=== PATIENT | female | born 1950 | race Caucasian/White ===

== ENCOUNTER 2016-11-03 06:51 | Day surgery (SDC) | payer MEDICARE ==
[2016-11-02 10:05] VITALS: BMI 28.7
--- NOTE | 2016-11-03 09:03 | MMO ---
RIGHT BREAST NEEDLE LOCALIZATION: HISTORY: Previous biopsy. Now the patient is scheduled for complete excisional biopsy. FINDINGS: Biopsy clip and associated calcifications are seen in the upper outer right breast. A CC approach w as used for the needle localization. After informed consent was obtained, the patient was prepped i n the normal sterile fashion. Local anesthesia was obtained with 1% Xylocaine. 7.5 cm [place] needle was used for the localization. The clip and calcifications were localized without difficulty. The patient tolerated the procedure well. There are no immediate complications. IMPRESSION: Needle localization of biopsy clip and associated calcifications upper outer right breast. No immed iate complications of the procedure. POS: [facility]
--- NOTE | 2016-11-03 09:42 | NM ---
LYMPHOSCINTIGRAPHY OF RIGHT BREAST: HISTORY: Breast cancer staging. FINDINGS: After informed consent was obtained, the patient was prepped in normal sterile fashion. Four separa te injections around the nipple were performed with a total dose of 440 mCi of 99m Technetium filter ed sulfur colloid. The patient tolerated the procedure well. Almost immediately, some axillary lym ph nodes were visualized. The patient was transferred to surgery. IMPRESSION: Successful lymphoscintigraphy of the right breast. POS: [facility]
[2016-11-03 09:55] LABS: Hematocrit 44.3 % (36.0-47.0); Mean Platelet Volume 7.7 fL (7.4-10.4); Red Blood Cell (RBC) Count 5.13 mill/uL (4.20-5.40); White Blood Cell (WBC) Count 8.1 thou/uL (4.8-10.8)
[2016-11-03 10:12] LABS: Anion Gap 16 mmol/L (10-20); BUN (Urea Nitrogen) 15 mg/dL (9.8-20.1); Calc. Creatinine Clearance 67 mL/min (70-130); Calcium 9.8 mg/dL (7.8-10.44); Carbon Dioxide 24 mmol/L (23-31); Chloride 104 mmol/L (98-107); Estimated GFR-MDRD 75
[2016-11-03] MEDS ORDERED: PHENYLEPHRINE-NS 100 MCG/ML 10 ML SYRINGE ONE (10:35)
[2016-11-03] MEDS ORDERED: Propofol 200 MG/20 ML VIAL ONE (10:35)
[2016-11-03] MEDS ORDERED: ePHEDrine/0.9% NaCl/PF SYRINGE 50 mg/10 ml ONE (10:35)
[2016-11-03] MEDS ORDERED: Glycopyrrolate 0.2 MG/ML 5 ML SYRINGE ONE (10:35)
[2016-11-03] MEDS ORDERED: Ondansetron HCl/PF 4 MG/2 ML Vial ONE (10:35)
--- NOTE | 2016-11-03 14:01 | MMO ---
SPECIMEN RADIOGRAPH: Single specimen radiograph confirms the presence of the biopsy clip and some of the calcifications w ithin the breast specimen. IMPRESSION: Specimen radiograph showing clip and calcifications within the specimen. POS: [facility]
--- NOTE | 2016-11-03 15:10 | PDOC.OP ---
Operative Note - Operative Note Operative Note: PROCEDURE: Right breast needle localized lumpectomy and sentinel lymph node biopsy DATE OF PROCEDURE: 11/03/2016 SURGEON: Suzanne Luciano M.D. PREOPERATIVE DIAGNOSES: Right breast cancer POSTOPERATIVE DIAGNOSIS: Right breast cancer HISTORY: Patient is diagnosed with right breast cancer. She initially had an enlarged axillary lymph node which was biopsy-proven to have metastatic cancer. A clip was placed in this lymph node as well as in the original mass. She underwent neoadjuvant chemotherapy with complete clinical response. She has decided to undergo breast conservation therapy. [place] lymph node biopsy was recommended for restaging. PROCEDURE IN DETAIL: The patient underwent lymphoscintigraphy and needle localization of the breast mass in radiology prior to being taken to the operating room. She was then taken to the operating room and placed in supine position and anesthesia was administered. Appropriate preoperative antibiotics were administered and lymphazurin was injected behind the areola and the breast was massaged for several minutes taking care not to displace or disturb the needle localization wire. She was then prepped and draped in the standard sterile fashion and local anesthesia infused the skin and subcutaneous tissues of the axilla. An incision was made over the lower edge of the hair-bearing skin of the axilla and dissection carried down to the area of highest activity. A slightly enlarged lymph node was encountered and resected but this did not have a high specimen counts and was not a sentinel lymph node. It was sent separately as axillary lymph node. A small lymph node in this area was identified which was morphologically normal and not blue. The lymphatics were clipped and the lymph node resected. A target count of 37 was obtained and the specimen was sent as sentinel lymph node #1. An additional area of increased activity was identified and another lymph node identified. This was not blue and had a target count of 105 and was sent as sentinel lymph node #2. A third area of increased count was identified and a third quite small lymph node was found and dissected free and had a specimen count of 63. No other focal area of increased activity was identified. The axillary wound was irrigated and examined for hemostasis which was excellent. No additional areas of increased activity were identified. Additional local anesthesia was infused circumferentially for postoperative pain management and the subcutaneous tissues were closed with 3-0 Monocryl suture and the skin closed with 4-0 subcuticular Monocryl suture. Attention was then turned to the needle localized lumpectomy. Local anesthesia was infused the skin and subcutaneous tissues at the needle localization site. An incision was made and flaps raised through the subcutaneous tissues. The breast tissue surrounding the needle was then excised maintaining a distance of about 2-3 cm from the localization needle in all directions. Especially generous margin was taken inferiorly and laterally in the area where the patient had a satellite lesion in close proximity to her invasive cancer originally. Dissection was carried out well past the end of the wire and the specimen removed and oriented for pathology with a long lateral, short superior , and looped superficial suture. This was sent for a specimen mammogram which revealed that the clip and calcifications were in the specimen. The wound was irrigated and hemostasis obtained with Bovie electrocautery. The margins of the biopsy cavity were marked with large clips to help guide postoperative radiation therapy. Additional local anesthesia was infused for postoperative pain management and the subcutaneous tissues were reapproximated with 3-0 Monocryl sutures. Additional local anesthesia was infused into the biopsy cavity and the skin was closed with 4-0 subcuticular Monocryl sutures. Dermabond was placed to both incisions. Estimated blood loss minimal. There were no complications. SPECIMENS: [place] lymph nodes #12 and 3 and non-sentinel lymph node from the right axilla, right breast lumpectomy with localization wire, marked with long lateral, short superior, and looped superficial suture.
== END 2016-11-03 15:00 | disposition home or self-care (01) ==
LOC: MAMMO 06:51 → SDC 15:00
PROVIDERS: ATTEND Surgery
PROC: 0HBT0ZZ Excision of Right Breast, Open Approach (ICD-10-PCS; principal; 2016-11-03)
PROC: 07B50ZX Excision of Right Axillary Lymphatic, Open Approach, Diagnostic (ICD-10-PCS; 2016-11-03)
PROC: C71L1ZZ Planar Nuclear Medicine Imaging of Upper Chest Lymphatics using Technetium 99m (Tc-99m) (ICD-10-PCS; 2016-11-03)
DX: C50.911 Malignant neoplasm of unspecified site of right female breast (principal); R56.9 Unspecified convulsions; F17.210 Nicotine dependence, cigarettes, uncomplicated; Z79.899 Other long term (current) drug therapy; Z17.0 Estrogen receptor positive status [ER+]; Z92.21 Personal history of antineoplastic chemotherapy
CPT/HCPCS: 19281; 19301; 38500; 38900; 76098; 78195; 80048; 85027; 88307; 88333; 88341; 88342; A9541; J2405; J2704

== ENCOUNTER 2016-11-06 08:49 | Day surgery (SDC) | payer MEDICARE ==
[~2016-11-06 08:49] MED LIST: Bupivacaine HCl 0.5%/Epinephrine 1:200,000/PF 30 ml Vial ONE; Fentanyl 100 MCG/2 ML VIAL ONE; Glycopyrrolate 0.2 MG/ML 5 ML SYRINGE ONE; HYDROcodone/Acetaminophen 5/325 mg Tablet ONE; Isosulfan Blue 50 MG/5 ML VIAL ONE
[2016-11-06] MEDS ORDERED: Sodium Chloride 0.9% 20 ML ONE (09:00)
[2016-11-06] MEDS ORDERED: TRASTUZUMAB IVPB SCH (09:15)
[2016-11-06] MEDS ORDERED: ADMIXTURE FEE IVPB SCH (09:15)
[2016-11-06] MEDS ORDERED: SODIUM CHLORIDE IVPB SCH (09:15)
[2016-11-06 09:17] VITALS: BP 145/68
== END 2016-11-06 11:10 | disposition home or self-care (01) ==
LOC: ONC/OP 08:49
PROVIDERS: ATTEND Internal Medicine Medical Oncology
DX: Z51.11 Encounter for antineoplastic chemotherapy (principal); C50.411 Malignant neoplasm of upper-outer quadrant of right female breast; M19.90 Unspecified osteoarthritis, unspecified site; I10 Essential (primary) hypertension; F32.9 Major depressive disorder, single episode, unspecified; F41.9 Anxiety disorder, unspecified; Z17.0 Estrogen receptor positive status [ER+]; Z90.710 Acquired absence of both cervix and uterus; Z90.49 Acquired absence of other specified parts of digestive tract; Z98.890 Other specified postprocedural states; F17.200 Nicotine dependence, unspecified, uncomplicated; Z80.42 Family history of malignant neoplasm of prostate
CPT/HCPCS: 96413; A4216; J0131; J0670; J1642; J3010; J7050; J9355; Q9968

== ENCOUNTER 2016-11-21 13:31 | Outpatient (CLI) | payer MEDICARE | END 2016-11-21 13:32 | disposition home or self-care (01) | LOC: ULT 13:31 | PROVIDERS: ATTEND Internal Medicine Medical Oncology | DX: Z51.11 Encounter for antineoplastic chemotherapy (principal); C50.411 Malignant neoplasm of upper-outer quadrant of right female breast | CPT/HCPCS: 93306 ==

== ENCOUNTER 2016-11-27 09:50 | Day surgery (SDC) | payer MEDICARE ==
[2016-11-27] MEDS ORDERED: Sodium Chloride 0.9% 20 ML ONE (10:12)
[2016-11-27] MEDS ORDERED: TRASTUZUMAB IVPB SCH (10:15)
[2016-11-27] MEDS ORDERED: ADMIXTURE FEE IVPB SCH (10:15)
[2016-11-27] MEDS ORDERED: SODIUM CHLORIDE IVPB SCH (10:15)
== END 2016-11-27 12:03 | disposition home or self-care (01) ==
LOC: ONC/OP 09:50
PROVIDERS: ATTEND Internal Medicine Medical Oncology
DX: Z51.11 Encounter for antineoplastic chemotherapy (principal); C50.411 Malignant neoplasm of upper-outer quadrant of right female breast; I10 Essential (primary) hypertension; M19.90 Unspecified osteoarthritis, unspecified site; F17.200 Nicotine dependence, unspecified, uncomplicated; Z79.899 Other long term (current) drug therapy; Z17.0 Estrogen receptor positive status [ER+]; Z90.710 Acquired absence of both cervix and uterus; Z90.49 Acquired absence of other specified parts of digestive tract; Z98.890 Other specified postprocedural states
CPT/HCPCS: 96413; A4216; J1642; J7050; J9355

== ENCOUNTER 2017-01-12 10:27 | Outpatient (CLI) | payer MEDICARE | END 2017-01-12 10:28 | disposition home or self-care (01) | LOC: BICMAMMO 10:27 | PROVIDERS: ATTEND Internal Medicine Medical Oncology | DX: Z13.820 Encounter for screening for osteoporosis (principal); M85.80 Other specified disorders of bone density and structure, unspecified site | CPT/HCPCS: 77080 ==

== ENCOUNTER 2017-02-12 11:49 | Outpatient (CLI) | payer MEDICARE | END 2017-02-12 11:50 | disposition home or self-care (01) | LOC: ULT 11:49 | PROVIDERS: ATTEND Internal Medicine Medical Oncology | DX: Z51.11 Encounter for antineoplastic chemotherapy (principal); C50.411 Malignant neoplasm of upper-outer quadrant of right female breast; I34.0 Nonrheumatic mitral (valve) insufficiency; I36.1 Nonrheumatic tricuspid (valve) insufficiency; Z79.899 Other long term (current) drug therapy | CPT/HCPCS: 93306 ==

== ENCOUNTER 2017-03-20 12:32 | Outpatient (CLI) | payer MEDICARE | END 2017-03-20 12:33 | disposition home or self-care (01) | LOC: ULT 12:32 | PROVIDERS: ATTEND Internal Medicine Medical Oncology | DX: Z51.11 Encounter for antineoplastic chemotherapy (principal); C50.411 Malignant neoplasm of upper-outer quadrant of right female breast; I08.1 Rheumatic disorders of both mitral and tricuspid valves; Z79.899 Other long term (current) drug therapy; N39.0 Urinary tract infection, site not specified | CPT/HCPCS: 87077; 87086; 87186; 93306 ==

== ENCOUNTER 2017-05-21 12:10 | Outpatient (CLI) | payer MEDICARE | END 2017-05-21 12:11 | disposition home or self-care (01) | LOC: ULT 12:10 | PROVIDERS: ATTEND Internal Medicine Medical Oncology | DX: Z51.11 Encounter for antineoplastic chemotherapy (principal); C50.919 Malignant neoplasm of unspecified site of unspecified female breast; I34.0 Nonrheumatic mitral (valve) insufficiency; Z79.899 Other long term (current) drug therapy | CPT/HCPCS: 93306 ==

== ENCOUNTER 2017-07-18 08:50 | Outpatient (CLI) | payer MEDICARE | END 2017-07-18 08:51 | disposition home or self-care (01) | LOC: BICMAMMO 08:50 | PROVIDERS: ATTEND Internal Medicine Medical Oncology | DX: C50.411 Malignant neoplasm of upper-outer quadrant of right female breast (principal) | CPT/HCPCS: 77066; G0279 ==

== ENCOUNTER 2018-01-11 07:53 | Outpatient (CLI) | payer MEDICARE ==
--- NOTE | 2018-01-11 09:52 | BD ---
DEXA BONE DENSITY STUDY: HISTORY: A 67-year-old female with a history of malignant neoplasm of upper outer quadrant of right breast, os teopenia, menopausal, screening. FINDINGS: Lumbar Spine: BMD (g/cm2) L1 0.805 T-Score: -1.7 L2 0.782 T-Score: -2.3 L3 0.847 T-Score: -2.2 L4 0.853 T-Score: -1.9 L1-L4 0.821 T-Score: -2.1 Evidence for osteopenia with increased risk for fracture. Prior exam 01/12/2017 total T-Score was -2.0. Left Femur: Femoral Neck: 0.547 T-Score: -2.7 Total Femur: 0.713 T-Score: -1.9 Evidence for osteoporosis with high risk for fracture. Femoral neck T-Score from prior exam, 01/12/2017, was -2.4. POS: [facility]
== END 2018-01-11 07:54 | disposition home or self-care (01) ==
LOC: BICMAMMO 07:53
PROVIDERS: ATTEND Internal Medicine Medical Oncology
DX: M85.88 Other specified disorders of bone density and structure, other site (principal); C50.411 Malignant neoplasm of upper-outer quadrant of right female breast; M81.0 Age-related osteoporosis without current pathological fracture
CPT/HCPCS: 77080

== ENCOUNTER 2018-01-11 09:23 | Outpatient (CLI) | payer MEDICARE ==
--- NOTE | 2018-01-11 13:55 | NM ---
BONE SCAN: Date: 01/11/18 HISTORY: Malignant neoplasm of breast. TECHNIQUE/FINDINGS: Examination performed using 33 mCi 99m technetium MDP administered intravenously. Whole body imaging was obtained, which shows a fairly normal distribution of the radiopharmaceutical. No evidence for me tastatic disease. Bilateral renal, as well as bladder activity, present. IMPRESSION: Unremarkable bone scan. POS: [facility]
== END 2018-01-11 09:24 | disposition home or self-care (01) ==
LOC: NM 09:23
PROVIDERS: ATTEND Internal Medicine Medical Oncology
DX: C50.411 Malignant neoplasm of upper-outer quadrant of right female breast (principal); M25.552 Pain in left hip
CPT/HCPCS: 78306; A9503

== ENCOUNTER 2018-07-22 08:52 | Outpatient (CLI) | payer MEDICARE ==
--- NOTE | 2018-07-22 09:32 | MMO ---
Bilateral MAMMO Bilat Diag DDI+ROGER. CLINICAL HISTORY: Patient is 68 years old and is seen for diagnostic exam. The patient has no family history of breast cancer. The patient has a history of malignant (generic) in the right breast in April,. The patient has a history of right Ultrasound Guided Core Biopsy in April, - malignant and right Lumpectomy in April, - malignant. VIEWS: The views performed were: bilateral craniocaudal with tomosynthesis; bilateral mediolateral oblique with tomosynthesis; bilateral mediolateral; and right exaggerated craniocaudal. FILMS COMPARED: The present examination has been compared to prior imaging studies performed at [facility] on 07/18/2017, and at [facility] on 08/25/2015, 03/13/2016 and 04/06/2016. MAMMOGRAM FINDINGS: There are scattered fibroglandular densities. Finding 1: There is an area of architectural distortion with associated post-surgical scar and biopsy clip seen in the right breast. Finding 2: There are stable benign appearing calcifications seen in the left breast. There are no suspicious masses, suspicious calcifications, or new areas of architectural distortion. IMPRESSION: THERE IS NO MAMMOGRAPHIC EVIDENCE OF MALIGNANCY. A ROUTINE FOLLOW-UP MAMMOGRAM IN 1 YEAR IS RECOMMENDED. THE RESULTS OF THIS EXAM WERE SENT TO THE PATIENT. ACR BI-RADS Category 2 - Benign finding MAMMOGRAPHY NOTE: 1. A negative mammogram report should not delay a biopsy if a dominant of clinically suspicious mass is present. 2. Approximately 10% to 15% of breast cancers are not detected by mammography. 3. Adenosis and dense breasts may obscure an underlying neoplasm.
== END 2018-07-22 08:53 | disposition home or self-care (01) ==
LOC: BICMAMMO 08:52
PROVIDERS: ATTEND Internal Medicine Medical Oncology
DX: Z08 Encounter for follow-up examination after completed treatment for malignant neoplasm (principal); Z85.3 Personal history of malignant neoplasm of breast
CPT/HCPCS: 77066; G0279

== ENCOUNTER 2018-10-20 20:12 | Observation (INO) | payer MEDICARE ==
--- NOTE | 2018-10-20 22:38 | PDOC.EVN ---
Event Note - Event Note Event Note: [id number] H&P dictated
[2018-10-20] MEDS ORDERED: Ondansetron PF 4 MG/2 ML Vial IVP PRN (22:59)
[2018-10-20] MEDS ORDERED: Ondansetron ODT 4 MG TAB SL PRN (22:59)
--- NOTE | 2018-10-21 00:24 | HP ---
CHIEF COMPLAINT: Right facial numbness. HISTORY OF PRESENT ILLNESS: Ms. Botello is a 68-year-old female, with past medical historyof hypertension, hyperlipidemia, breast cancer, seizures, among others, presents to the emergency room with a chief complaint of paresthesias/numbness of the right facial and right upper extremity. Symptoms started around 4 p.m. Denies weakness or slurring of speech. Initial workup in the emergency room including CT of the brain, no acute finding. The patient is being admitted to the hospital for further management. PAST MEDICAL HISTORY: 1. Hypertension. 2. Seizures. 3. Hyperlipidemia. 4. Breast cancer. PAST SURGICAL HISTORY: 1. Two lumps removed from the left breast. 2. Appendectomy. 3. Cholecystectomy. 4. Hysterectomy. 5. Depression. SOCIAL HISTORY: Patient smokes 1.5 packs per day, denies alcohol drinking or drug abuse. FAMILY HISTORY: Reviewed and noncontributory. ALLERGIES: NO KNOWN ALLERGIES. REVIEW OF SYSTEMS: Review of 14 systems negative except what is mentioned in History of Present Illness. PHYSICAL EXAMINATION: GENERAL: The patient is awake, alert, oriented, does not appear to be in acute distress. VITAL SIGNS: Blood pressure is 142/84, respiratory rate is 20, pulse is 100, temperature is 98.6. HEAD AND NECK: Normocephalic, atraumatic. Neck is supple. No JVD. CHEST: Fair bilateral air entry. HEART: S1, S2. Regular. ABDOMEN: Soft, nontender. Bowel sounds present. NEUROLOGIC: Awake, alert, oriented x3, no focal deficit. PSYCH: Normal mood. EXTREMITIES: No clubbing or cyanosis. LABORATORY DATA: CT of the brain, no acute findings. WBC 7.4, hemoglobin 11.8, platelets 42. ASSESSMENT: 1. Right facial numbness/paresthesia, transient ischemic attack/?cerebrovascular accident. 2. Hypertension. 3. Hyperlipidemia. 4. Thrombocytopenia, etiology? PLAN: 1. Admit. 2. Telemetry monitoring. 3. Frequent neuro checks. 4. Check lipid panel. 5. MRI of the brain. 6. 2D echo. 7. Carotid Doppler. 8. Reconcile home medications. 9. DVT prophylaxis, SCDs. 10. Expected length of stay at least 1 midnight if the patient is stable and further workup negative. Job ID: [id number]
[2018-10-21 01:15] VITALS: BMI 32.7
[2018-10-21 04:14] LABS: Cardiac Risk 2.9 (Less than 4.5)
[2018-10-21] MEDS ORDERED: Aspirin 325 MG TAB PO SCH (08:00)
--- NOTE | 2018-10-21 08:53 | HP ---
ADDENDUM: Regarding thrombocytopenia, her platelet count is 40,000. Reviewing her old labs, her platelet count has been normal. I will go ahead and stop the heparin and aspirin for now. We are going to repeat CBC and reassess, may need to get Hematology consultation for evaluation and further management. Job ID: [id number]
[2018-10-21] MEDS ORDERED: Heparin 5,000 UNITS/ML VIAL SC SCH (09:00)
[2018-10-21] MEDS ORDERED: Aspirin 325 mg Enteric Coated Tablet PO SCH (09:00)
--- NOTE | 2018-10-21 10:44 | MRI ---
BRAIN MRI WITHOUT CONTRAST: DATE: 10/21/2018. COMPARISON: None. HISTORY: Right-sided facial tingling and numbness. TECHNIQUE: Multiplanar, multisequence MR imaging of the brain obtained without contrast. FINDINGS: The diffusion weighted imaging demonstrates no evidence for acute infarction. There is artifact asso ciated with a metallic density within the patient's scalp limiting assessment of the right temporal r egion. There is mild polypoid mucosal thickening involving the alveolar recess of bilateral maxillary sinuse s. Arterial flow voids at the axial level of the skull base appear grossly unremarkable on the T2 weight ed imaging. The gradient echo imaging demonstrates no evidence for intracranial hemorrhage. Right temporal regio n is poorly assessed secondary to artifact mentioned above. There are multiple subcentimeter foci of increased T2 and FLAIR signal within the deep and periventri cular white matter suggesting a mild degree of small vessel disease. Regional bone marrow signal intensity is within normal limits. IMPRESSION: Chronic/incidental findings as detailed above. No MR evidence for acute infarction. POS: [facility]
--- NOTE | 2018-10-21 11:42 | ULT ---
BILATERAL CAROTID DUPLEX ULTRASOUND: HISTORY: TIA. FINDINGS: Real-time color Doppler evaluation of right and left carotid systems was performed. This shows some minimal plaque formation at the origin of the left internal carotid artery. On the right side, peak systolic velocities of the common carotid were 120 cm/s. Internal carotid ve locities were 91 cm/s and external carotid velocities 144 cm/s. On the left side, peak systolic velocities of the common carotid were 92 cm/s. Internal carotid velo cities were 93 cm/s and external carotid velocities 166 cm/s. Vertebral flow is antegrade bilaterally. IMPRESSION: No evidence of hemodynamically significant stenosis of either internal carotid artery by NASCET crite kevin. POS: [facility]
--- NOTE | 2018-10-21 14:04 | PDOC.HOSPP ---
- Subjective Subjective: Seen and examined this a.m. Family at bedside, state that her slurred speech may be improving. Still with right-sided paresthesias/numbness and tingling in the hand. Patient has never been told that she has low platelets in the past to her knowledge. Denies bleeding. - Objective Vital Signs & Weight: Vital Signs (12 hours) Temp Pulse Resp BP Pulse Ox 10/21/18 12:00 98.3 F 96 16 118/71 93 L 10/21/18 08:00 98.4 F 84 16 101/72 94 L 10/21/18 03:52 97.2 F L 80 16 103/65 98 Weight Weight 146 lb 1.6 oz I&O: 10/20/18 10/21/18 10/22/18 06:59 06:59 06:59 Intake Total 100 Output Total 0 Balance 100 Hospitalist ROS - Review of Systems All other systems reviewed; all pertinent +/- noted in HPI/Subj - Exam General Appearance: NAD, awake alert Eye: anicteric sclera ENT: no oropharyngeal lesions, moist mucosa Neck: supple, symmetric, no lymphadenopathy Heart: no murmur, no gallops, no rubs Respiratory: CTAB, no wheezes, no rales, no ronchi Gastrointestinal: soft, non-tender, non-distended, normal bowel sounds, no guarding, no rigidity Extremities: 1+ LE edema Skin: no lesions, no rashes Neurological: cranial nerve grossly intact, no weakness, no focal deficits, speech deficit Musculoskeletal: generalized weakness Psychiatric: normal affect, A&O x 3 Hosp A/P (1) TIA (transient ischemic attack) Code(s): G45.9 - TRANSIENT CEREBRAL ISCHEMIC ATTACK, UNSPECIFIED Status: Acute (2) HTN (hypertension) Code(s): I10 - ESSENTIAL (PRIMARY) HYPERTENSION Status: Acute (3) HLD (hyperlipidemia) Code(s): E78.5 - HYPERLIPIDEMIA, UNSPECIFIED Status: Acute (4) Tobacco abuse Code(s): Z72.0 - TOBACCO USE Status: Acute (5) Paresthesia Code(s): R20.2 - PARESTHESIA OF SKIN Status: Acute (6) Dysarthria Code(s): R47.1 - DYSARTHRIA AND ANARTHRIA Status: Acute - Plan Plan: stroke unit neurology consultation, recommendations appreciated hematology consultation, recommendations appreciated MRI brain, no acute ischemia identify ultrasound carotid, no hemodynamically significant stenosis echocardiogram, preserved ejection fraction patient denies history of knowing about thrombocytopenia in the past denies bleeding continue home medications as able PT/OT eval and treat
[2018-10-21 14:46] LABS: #Eosinphils 0.1 thou/uL (0.0-0.7); #Monocytes 0.7 thou/uL (0.11-0.59); %Basophils 0.6 % (0.0-1.0); %Eosinophils 1.4 % (0.0-10.0); %Lymphocytes 12.9 % (21.0-51.0); %Monocytes 8.5 % (0.0-10.0); %Neutrophils 76.6 % (42.0-75.0); Hemoglobin 11.3 g/dL (12.0-16.0); Mean Corpuscular HGB CONC 33.3 g/dL (32.0-36.0); Mean Corpuscular Hemoglobin 29.4 pg (27.0-31.0); Mean Corpuscular Volume 88.1 fL (78.0-98.0); Mean Platelet Volume 7.6 fL (7.4-10.4); Platelet Count 284 thou/uL (130-400); RBC Distribution Width 11.7 % (11.5-14.5); Red Blood Cell (RBC) Count 3.83 mill/uL (4.20-5.40); White Blood Cell (WBC) Count 7.8 thou/uL (4.8-10.8)
[2018-10-21 16:42] VITALS: BP 118/89; TEMP 98.2
--- NOTE | 2018-10-21 21:11 | DIS ---
DATE OF ADMISSION: 10/20/2018 DATE OF DISCHARGE: 10/21/2018 REASON FOR HOSPITALIZATION: Right-sided numbness and tingling. SIGNIFICANT FINDINGS: The patient had a negative stroke workup. PROCEDURES PERFORMED AND TREATMENTS RENDERED: Please see full radiographic reports for all details. The patient had MRI of the brain, echocardiogram, and carotid ultrasound, all of which were negative for acute or significant chronic abnormalities. The patient had a metabolic workup which was benign. CONDITION ON DISCHARGE: Stable. SPECIFIC INSTRUCTIONS FOR THE PATIENT/FAMILY: 1. The patient is to follow up with primary care physician in the next 1 to 3 days. 2. The patient is recommended to follow up with Neurology in the next 1 to 2 weeks. 3. The patient is recommended to take all medications as outlined, to be re-evaluated by primary care physician and Neurology in the outpatient setting. 4. The patient is recommended to start aspirin. 5. The patient is recommended to return to acute care hospital immediately if signs or symptoms return, worsen, or any other new symptoms occur. DISCHARGE MEDICATIONS: 1. Lisinopril/hydrochlorothiazide 10/12.5 one tab p.o. daily. 2. Amitriptyline 25 mg one tablet p.o. at bedtime. 3. Aspirin 81 mg one tablet p.o. daily. 4. The patient states she was stopped on her cholesterol medication because of worsening muscle aches, I recommend she readjust this with her primary care physician and start a cholesterol medication that is tolerated. HOSPITAL COURSE: Ms. Botello is a very pleasant 68-year-old white female, who presented to [facility] on 10/20/2018, with right-sided numbness and tingling in the arm and face and possible trouble with her speech. The patient was admitted to the Stroke Unit for further evaluation. The patient had an MRI of the brain, please see full report for details, no acute infarct or hemorrhage was identified. The patient does have some incidental findings consistent with small vessel disease. The patient had carotid ultrasound, please see full report for details, no hemodynamically significant stenosis bilaterally. The patient had echocardiogram, please see full report for details, ejection fraction of 60% without significant valvular pathology. The patient's symptoms have improved/resolved on admission to the hospital. Because the patient's symptoms are improved and she has a negative workup, she was recommended safe for discharge with close followup in the outpatient setting. The patient is recommended to follow up with primary care physician and Neurology as directed. The patient recommended to take all medications as directed. The patient is recommended to return to acute care hospital immediately if signs or symptoms return, worsen, or any other new symptoms occur. Greater than 39 minutes spent coordinating care and discharge process for this patient. Job ID: [id number]
--- NOTE | 2018-10-26 12:00 | EKG ---
Test Reason : ER INDICATION Blood Pressure : / mmHG Vent. Rate : 099 BPM Atrial Rate : 099 BPM P-R Int : 114 ms QRS Dur : 080 ms QT Int : 354 ms P-R-T Axes : 035 009 036 degrees QTc Int : 454 ms Normal sinus rhythm Normal ECG Confirmed by TAYA AL, ALEXANDRU ([id number]), editorial cartoonist EARNESTINE DE LEÓN ([id number]) on 10/26/2018 11:59:44 AM Referred By: Confirmed By:ALEXANDRU BAIN MD
== END 2018-10-21 16:53 | disposition home or self-care (01) ==
LOC: ERS 20:12 → 2SE 20:25
PROVIDERS: ADMIT Internal Medicine; ATTEND Internal Medicine
DX: G45.9 Transient cerebral ischemic attack, unspecified (principal); I10 Essential (primary) hypertension; E78.5 Hyperlipidemia, unspecified; F17.210 Nicotine dependence, cigarettes, uncomplicated; F32.9 Major depressive disorder, single episode, unspecified; Z79.899 Other long term (current) drug therapy
CPT/HCPCS: 70551; 80061; 85025; 93005; 93306; 93880; 99285; G0378 ×3; 36415

== ENCOUNTER 2019-06-04 13:35 | Outpatient (CLI) | payer MEDICARE ==
--- NOTE | 2019-06-04 14:11 | BD ---
DEXA BONE DENSITOMETRY: (Dual energy x-ray absorptiometry) DATE: 06/04/2019 HISTORY: 69-year old white female for age-related, post-menopausal, osteoporosis screening. weight: 150 lbs height: 56 in. Age of menopause: 51 COMPARISON: 01/11/2018 FINDINGS: The bone mineral density (BMD) is given in grams per square centimeter (g/cm2): LUMBAR SPINE: BMD (g/cm^2) T score Z score L1: 0.796 -1.8 0.0 L2: 0.868 -1.5 0.5 L3: 0.893 -1.7 0.3 L4: 0.942 -1.1 1.0 Total: 0.875 -1.6 0.4 Change in BMD compared to previous DEXA: +6.6 %. HIP: BMD (g/cm^2) T score Z score Femoral neck: 0.539 -2.8 -1.1 Total: 0.747 -1.6 -0.2 Change in BMD compared to previous DEXA: 4.8 %. IMPRESSION: 1.) The mean bone mineral density of the lumbar spine is osteopenic. Fracture risk is increased. 2) The bone mineral density of the femoral neck is osteoporotic. Fracture risk is high.
== END 2019-06-04 13:36 | disposition home or self-care (01) ==
LOC: BICMAMMO 13:35
PROVIDERS: ATTEND Internal Medicine Medical Oncology
DX: M81.8 Other osteoporosis without current pathological fracture (principal); C50.411 Malignant neoplasm of upper-outer quadrant of right female breast; M85.88 Other specified disorders of bone density and structure, other site; Z78.0 Asymptomatic menopausal state
CPT/HCPCS: 77080

== ENCOUNTER 2019-07-24 08:53 | Outpatient (CLI) | payer MEDICARE ==
--- NOTE | 2019-07-24 09:29 | MMO ---
Bilateral MAMMO Bilat Diag DDI+ROGER. CLINICAL HISTORY: Patient is 69 years old and is seen for diagnostic exam. The patient has no family history of breast cancer. The patient has a history of malignant (generic) in the right breast in April,. The patient has a history of right Ultrasound Guided Core Biopsy in April, - malignant and right Lumpectomy in April, - malignant. VIEWS: The views performed were: bilateral craniocaudal with tomosynthesis; bilateral mediolateral oblique with tomosynthesis; and bilateral mediolateral with tomosynthesis. FILMS COMPARED: The present examination has been compared to prior imaging studies performed at [facility] on 07/18/2017 and 07/22/2018, and at [facility] on 03/13/2016 and 04/06/2016. This study has been interpreted with the assistance of computer-aided detection. MAMMOGRAM FINDINGS: There are scattered fibroglandular densities. Finding 1: There are stable benign appearing calcifications seen in both breasts. Finding 2: There is a stable post-surgical scar seen in the right breast. There are no suspicious masses, suspicious calcifications, or new areas of architectural distortion. IMPRESSION: THERE IS NO MAMMOGRAPHIC EVIDENCE OF MALIGNANCY. A ROUTINE FOLLOW-UP MAMMOGRAM IN 1 YEAR IS RECOMMENDED. THE RESULTS OF THIS EXAM WERE SENT TO THE PATIENT. ACR BI-RADS Category 2 - Benign finding MAMMOGRAPHY NOTE: 1. A negative mammogram report should not delay a biopsy if a dominant of clinically suspicious mass is present. 2. Approximately 10% to 15% of breast cancers are not detected by mammography. 3. Adenosis and dense breasts may obscure an underlying neoplasm. Reported by: ASHLEY AVILA MD Electonically Signed: [id number]
== END 2019-07-24 08:54 | disposition home or self-care (01) ==
LOC: BICMAMMO 08:53
PROVIDERS: ATTEND Internal Medicine Medical Oncology
DX: Z08 Encounter for follow-up examination after completed treatment for malignant neoplasm (principal); Z85.3 Personal history of malignant neoplasm of breast
CPT/HCPCS: 77066; G0279

== ENCOUNTER 2019-08-29 07:36 | Outpatient (CLI) | payer MEDICARE ==
--- NOTE | 2019-08-29 10:55 | MRI ---
MRI OF THE PELVIS WITHOUT IV CONTRAST: INDICATION: A 69-year-old female with sacral pain and history of breast cancer. COMPARISON: CT of the abdomen and pelvis with contrast dated 11/09/2010. FINDINGS: No overt marrow signal abnormality is evident. No definite evidence of metastatic disease is seen to the bones of the pelvis. The presacral soft tissues appear within normal limits. There are scatter ed diverticular involving the colon. No pathologically enlarged lymph nodes are grossly evident. Th e adnexa are present and appear within normal limits. The uterus is surgically absent. The visualiz ed bladder, rectum, and perirectal soft tissues appear within normal limits. The SI joints and sacra l neural foramina appear patent. The visualized musculature of the pelvis appears within normal limi ts. No overt paralabral cyst is evident. There is mild chronic osteitis pubis. There is a small fa t-containing umbilical hernia. IMPRESSION: No definite acute abnormality demonstrated. POS: [facility]
== END 2019-08-29 07:37 | disposition home or self-care (01) ==
LOC: BICMRI 07:36
PROVIDERS: ATTEND Internal Medicine Medical Oncology
DX: C50.411 Malignant neoplasm of upper-outer quadrant of right female breast (principal); M53.3 Sacrococcygeal disorders, not elsewhere classified
CPT/HCPCS: 72195; 82565

== ENCOUNTER 2019-10-01 09:38 | Outpatient (CLI) | payer MEDICARE ==
--- NOTE | 2019-10-01 14:10 | NM ---
NM Bone Scan STANDARD History: Malignant neoplasm upper outer quadrant right female breast Comparison: Radiograph of the chest September 22, 2019 Findings: Delayed whole body imaging performed after intravenous ministration 33 mCi technetium 99m M DP. Adequate osseous uptake of radiotracer. Moderate to severe right midfoot degenerative changes. The ki dneys and urinary bladder are visualized. Mild focal increased uptake left proximal humeral metaphysis. Impression: 1. No evidence for osseous metastatic disease. 2. Focal mild increased radiotracer uptake within the proximal left humeral metaphysis due to benign chondroid lesion.
== END 2019-10-01 09:39 | disposition home or self-care (01) ==
LOC: NM 09:38
PROVIDERS: ATTEND Internal Medicine Medical Oncology
DX: C50.411 Malignant neoplasm of upper-outer quadrant of right female breast (principal); M53.3 Sacrococcygeal disorders, not elsewhere classified; M81.8 Other osteoporosis without current pathological fracture
CPT/HCPCS: 78306; A9503

== ENCOUNTER 2019-11-18 19:34 | Inpatient (IN) | payer MEDICARE ==
[2019-11-18] MEDS ORDERED: diphenhydrAMINE 25 MG CAP PO PRN (23:06)
[2019-11-18] MEDS: Lactated Ringer's 1,000 ML IV SCH (23:15)
[2019-11-18 23:57] VITALS: BMI 34.3
[2019-11-19] MEDS ORDERED: Cefepime 2 GM in Sodium Chloride 0.9% 100 ML IVPB SCH (00:15)
--- NOTE | 2019-11-19 01:33 | HP ---
PCP is Dr. Mojica. CHIEF COMPLAINT: Breast pain. HISTORY OF PRESENT ILLNESS: The patient is a 69-year-old female with a past medical history significant for breast malignancy treated with chemotherapy and radiation, hypertension, and high cholesterol. She presented to the ER today in [place] after she developed a fever and redness to the right breast and right upper chest and right abdomen. Her fever was as high as 102.7 at home. She states that she does have some UTI symptoms too, but was unable to really describe and just says that she feels different when she goes to the bathroom. The patient was seen in [place] in September and was transferred and admitted to [facility] for right breast mastitis, cellulitis, sepsis, and UTI. She had been hospitalized for 3 days and was treated with cephalosporins and did well, discharged on Keflex. The patient states that the redness did go away completely, but then today came back. The patient states that she has been compliant with her medications. Today in the ER, they completed a chest x-ray, lab work, and medication administration. In [place] ER, they gave her vancomycin 1750 mg IV, cefepime 2 g IV, normal saline 2 L, and Motrin 600 mg. They did begin the sepsis protocol over there, and blood cultures were drawn. In the [place] ER, she had another lactic acid drawn and was given lactated Ringer's. PAST MEDICAL HISTORY: Includes breast cancer of the right breast that was treated with radiation and chemotherapy, hypertension, hyperlipidemia. PAST SURGICAL HISTORY: No history. ALLERGIES: NO KNOWN ALLERGIES. MEDICATIONS: 1. Hydroxyzine 25 mg p.o. b.i.d. 2. Lisinopril HCTZ 10-12.5 mg half a tablet daily. 3. Atorvastatin 40 mg daily. 4. Arimidex 1 mg daily. 5. Amitriptyline 25 mg at night. SOCIAL HISTORY: The patient lives at home. She is a former tobacco user. She denies any drug or alcohol use. FAMILY HISTORY: Negative for anything pertinent to this admission. REVIEW OF SYSTEMS: All other review of systems was negative unless noted in the HPI. PHYSICAL EXAMINATION: VITAL SIGNS: Blood pressure 111/62, pulse 100, respiratory rate 22, temperature 98.7, pain 0, O2 saturation 99% on room air. CONSTITUTIONAL: Afebrile, tachycardic, blood pressure normal. HEENT: Head is atraumatic, normocephalic. Eyes, extraocular muscles intact. PERRLA. NECK: Normal range of motion. Trachea is midline. RESPIRATORY: Clear to auscultation bilaterally. No rhonchi, no wheezes, no rales. CARDIOVASCULAR: Regular rate and rhythm. No murmurs, rubs, or gallops. ABDOMEN: Nontender. No distention. No guarding. No rigidity. EXTREMITIES: No cyanosis, no clubbing, no edema. SKIN: Cellulitis present to the right breast and right upper abdomen. LABORATORY DATA AND IMAGING STUDIES: Chest x-ray showed no definite acute findings. Labs in [place] show white blood cells 24.1, red blood cells 4.5, hemoglobin 12.8, hematocrit 42.3. Sodium 139, potassium 4.4, BUN 26, creatinine 1.4, GFR 37, glucose 121. Lactic acid initially 2.5, came down to 1 later. Urine; trace blood, nitrite positive, moderate leukocyte esterase, 3+ bacteria. IMPRESSION AND PLAN: The patient with sepsis with both cellulitis and urinary tract infection. We will continue her on her IV antibiotics and treat with antipyretics p.r.n. We will continue to monitor her lab work. Lactic acid already returned to normal upon admission. We will continue her on the IV fluids to see if we can see some improvement with her kidneys. Pharmacy to help dose with her IV antibiotics. Blood cultures and urine cultures were sent in [place]. The patient has a history of hypertension. We will restart her home medications. Once we ensure that her blood pressure is going to maintain, we can restart her home medications. She is to be admitted to the medical floor, vital signs q. shift. Monitor intake and outputs to ensure she is urinating as she needs to. For the patient's hyperlipidemia, we can restart home medications. Gastrointestinal prophylaxis in place with Pepcid. Venous thromboembolism prophylaxis in place with Lovenox and sequential compression devices. The patient wishes to be a full code. Her son, Maurilio, is her surrogate decision maker. I have discussed the patient with Dr. Ross. Job ID: [id number] [facility]
[2019-11-19 06:14] LABS: #Eosinphils 0.1 thou/uL (0.0-0.7); #Lymphocytes 0.8 thou/uL (1.20-3.40); #Monocytes 0.8 thou/uL (0.11-0.59); #Neutrophils 7.1 thou/uL (1.40-6.50); %Basophils 0.2 % (0.0-1.0); %Eosinophils 1.3 % (0.0-10.0); %Lymphocytes 9.5 % (21.0-51.0); %Monocytes 8.7 % (0.0-10.0); %Neutrophils 80.3 % (42.0-75.0); Hemoglobin 10.4 g/dL (12.0-16.0); Mean Corpuscular HGB CONC 33.2 g/dL (32.0-36.0); Mean Corpuscular Hemoglobin 30.1 pg (27.0-31.0); Mean Corpuscular Volume 90.6 fL (78.0-98.0); Mean Platelet Volume 8.6 fL (7.4-10.4); Platelet Count 208 thou/uL (130-400); RBC Distribution Width 12.3 % (11.5-14.5); Red Blood Cell (RBC) Count 3.47 mill/uL (4.20-5.40); White Blood Cell (WBC) Count 8.9 thou/uL (4.8-10.8)
[2019-11-19 06:34] LABS: Anion Gap 11 mmol/L (10-20); BUN (Urea Nitrogen) 23 mg/dL (9.8-20.1); Calc. Creatinine Clearance 59 mL/min (70-130); Calcium 7.9 mg/dL (7.8-10.44); Carbon Dioxide 21 mmol/L (23-31); Chloride 112 mmol/L (98-107); Estimated GFR-MDRD 55; Glucose 95 mg/dL (80-115); Sodium 140 mmol/L (136-145)
[2019-11-19] MEDS: Famotidine 20 MG TAB PO SCH (08:39)
[2019-11-19] MEDS: Enoxaparin Sodium 30 MG/0.3 ML SYRINGE SC SCH (08:46)
[2019-11-19] MEDS ORDERED: Vancomycin HCl 1.75 GM in Sodium Chloride 0.9% 250 ML 300 ML IVPB SCH (09:00)
[2019-11-19] MEDS ORDERED: hydrOXYzine 25 MG TAB PO SCH (09:45)
[2019-11-19] MEDS ORDERED: Lisinopril/Hydrochlorothiazide 10 mg/12.5 mg Tablet PO SCH (09:45)
[2019-11-19] MEDS: Lactated Ringer's 1,000 ML IV SCH (10:52)
[2019-11-19 16:09] LABS: SARS-CoV-2 MS2 Positive; SARS-CoV-2 N Gene Negative; SARS-CoV-2 S Gene Negative; SARS-CoV-2 by NAA Not Detected (NotDetected); SARS-CoV-2 orf1ab Negative
[2019-11-19] MEDS ORDERED: Cefepime 1 GM in Sodium Chloride 0.9% 100 ML IVPB SCH ×2 (17:00→22:00)
--- NOTE | 2019-11-19 17:20 | PDOC.HOSPP ---
- Subjective Encounter Date: 11/19/19 Encounter Time: 11:00 Subjective: Patient up in bed denies any complaints - Objective Vital Signs & Weight: Vital Signs (12 hours) Temp Pulse Resp BP BP BP Pulse Ox 11/19/19 15:05 98.1 F 89 16 113/54 L 100 11/19/19 11:38 98.0 F 88 16 94/46 L 97 11/19/19 10:50 92 114/70 11/19/19 10:39 114/70 11/19/19 08:00 98.5 F 11/19/19 07:13 98.5 F 92 20 98/63 100 Weight Weight 153 lb 3.54 oz I&O: 11/18/19 11/19/19 11/20/19 06:59 06:59 06:59 Intake Total 480 Balance 480 Result Diagrams: 11/19/19 05:22 11/19/19 05:22 Hospitalist ROS - Review of Systems Cardiovascular: denies: chest pain, palpitations, orthopnea, paroxysmal noc. dyspnea, edema, light headedness, other Gastrointestinal: denies: nausea, vomiting, abdominal pain, diarrhea, constipation, melena, hematochezia, other Genitourinary: denies: dysuria, frequency, incontinence, hematuria, retention, other - Medication Medications: Active Medications Generic Name Dose Route Start Last Admin Trade Name Jigneshq PRN Reason Stop Dose Admin Enoxaparin Sodium 30 mg 11/19/19 09:00 11/19/19 08:46 Enoxaparin Sodium 30 Mg/0.3 Ml Syringe SC 30 mg 0900 CHERYL Administration Famotidine 20 mg 11/19/19 09:00 11/19/19 08:39 Famotidine 20 Mg Tab PO 20 mg DAILY CHERYL Administration Lactated Ringer's 1,000 mls @ 100 mls/hr 11/18/19 23:15 11/19/19 10:52 Lactated Ringer's IV Not Given .Q10H CHERYL - Exam General - other findings: Significant erythema noted to the right breast and the right upper quadrant Neck: negative: supple, symmetric, no JVD, no thyromegaly, no lymphadenopathy, no carotid bruit, JVD Heart: negative: RRR, no murmur, no gallops, no rubs, normal peripheral pulses, irregular, diminshed peripheral pulses, murmur present, II/IV, III/IV Respiratory: negative: CTAB, no wheezes, no rales, no ronchi, normal chest expansion, no tachypnea, normal percussion, rales, rhonchi, tachypneic, wheezes Gastrointestinal: negative: soft, non-tender, non-distended, normal bowel sounds, no palpable masses, no hepatomegaly, no splenomegaly, no bruit, no guarding, no rigidity, tender to palpation, distended, diminished bowl sounds, voluntary guarding Hosp A/P (1) Cellulitis Code(s): L03.90 - CELLULITIS, UNSPECIFIED Status: Acute (2) HLD (hyperlipidemia) Code(s): E78.5 - HYPERLIPIDEMIA, UNSPECIFIED Status: Acute (3) HTN (hypertension) Code(s): I10 - ESSENTIAL (PRIMARY) HYPERTENSION Status: Acute (4) Hx of breast cancer Code(s): Z85.3 - PERSONAL HISTORY OF MALIGNANT NEOPLASM OF BREAST Status: Acute (5) Sepsis Code(s): A41.9 - SEPSIS, UNSPECIFIED ORGANISM Status: Acute - Plan Continue current antibiotics. Will consult infectious disease. She had a similar presentations a few months ago. We will continue home medications check labs in a.m. Sepsis resolved.
[2019-11-19] MEDS: Nystatin Powder 15 GM BOT TOP PRN (17:52)
[2019-11-19] MEDS: Acetaminophen 325 MG TAB PO PRN (17:56)
[2019-11-19] MEDS ORDERED: Vancomycin HCl 750 MG in Sodium Chloride 0.9% 250 ML 250 ML IVPB SCH (18:00)
--- NOTE | 2019-11-19 19:44 | CON ---
DATE OF CONSULTATION: REASON FOR CONSULTATION: Recrudescence of right breast cellulitis, chest wall cellulitis. HISTORY OF PRESENT ILLNESS: A 69-year-old, who we just recently treated for cellulitis of the right breast, chest wall in the mid September this year. She has a history of smoking, breast cancer, lumpectomy, radiation, lymph node evaluation few years before. She was treated with cephalosporin with prompt response oral Keflex and I had recommended penicillin VK, but she did not take it and is at now recurrence, pretty much the same manifestations as the previous episode of some general malaise and chills. No respiratory symptoms or chest pain. No abdominal pain or diarrhea. No genitourinary symptoms. No joint symptoms. MEDICAL HISTORY: Breast cancer, lumpectomy, radiation, lymph node evaluation, cellulitis of right breast with now recurrence. ALLERGIES: NONE. MEDICATIONS: 1. Anastrozole. 2. Amitriptyline. 3. Atorvastatin. 4. Hydroxyzine. 6. Lisinopril. She is currently receiving cefepime and vancomycin. SOCIAL HISTORY: Former smoker. FAMILY HISTORY: Noncontributory. PHYSICAL EXAMINATION: VITAL SIGNS: T-max 99.6, blood pressure 94/46, heart rate 88, respirations 16, and O2 saturation 97%. SKIN: Red erythema and swelling of the right breast and chest wall exactly the same manifestation as she had in the last admission. Peripheral IV access. NECK: No lymphadenopathy. HEENT: Ocular movements conjugate. Oral cavity normal. LUNGS: Clear to auscultation and percussion. HEART: S1 and S2. Regular rate. No S3 or S4. ABDOMEN: Soft, not distended or tender. No ascites. No bladder distention. EXTREMITIES: No joint inflammatory activity. No edema. Pulses 1+ in dorsalis pedis. Moves extremities equally. Cognitive function appears to be intact. LABORATORY DATA: WBC 8.9, hemoglobin 10.4, platelets 208, neutrophil percentage of 80, carbon dioxide 21, sodium 140, creatinine 1.0. SARS-CoV was not repeated. Two sets of blood cultures are thus far negative. IMAGING STUDIES: Chest x-ray with no infiltrates. She had a bone scan on September 30 with no evidence of osseous metastatic disease. ASSESSMENT: Breast cancer managed with lumpectomy and lymph node evaluation, radiation therapy, currently on anastrozole, recurrent episodes of cellulitis of right breast associated with lymphadenectomy, likely lymphedema. The last episode responded quite well to a cephalosporin, so go ahead and switch her to cefazolin and transition to Keflex, and at this time I would recommend 12 months of oral penicillin VK 250 mg b.i.d. and tight feeding bra, compressive device. Job ID: [id number] [facility]
[2019-11-19] MEDS: Amitriptyline HCl 25 MG TAB PO SCH (19:52)
[2019-11-19] MEDS: CEFAZOLIN 2 GM in Premix Bag 1 BAG IVPB SCH (19:52)
[2019-11-19] MEDS: hydrOXYzine 25 MG TAB PO SCH (19:52)
[2019-11-20] MEDS: CEFAZOLIN 2 GM in Premix Bag 1 BAG IVPB SCH ×3 (05:12→20:40)
[2019-11-20] MEDS: Nystatin Powder 15 GM BOT TOP PRN ×2 (05:18→14:45)
[2019-11-20 06:03] LABS: #Eosinphils 0.2 thou/uL (0.0-0.7); #Lymphocytes 0.9 thou/uL (1.20-3.40); #Monocytes 0.7 thou/uL (0.11-0.59); %Basophils 0.8 % (0.0-1.0); %Eosinophils 3.2 % (0.0-10.0); %Lymphocytes 15.2 % (21.0-51.0); %Monocytes 12.6 % (0.0-10.0); %Neutrophils 68.3 % (42.0-75.0); Hemoglobin 10.1 g/dL (12.0-16.0); Mean Corpuscular HGB CONC 33.1 g/dL (32.0-36.0); Mean Corpuscular Hemoglobin 30.1 pg (27.0-31.0); Mean Corpuscular Volume 90.9 fL (78.0-98.0); Mean Platelet Volume 8.3 fL (7.4-10.4); Platelet Count 192 thou/uL (130-400); RBC Distribution Width 12.1 % (11.5-14.5); Red Blood Cell (RBC) Count 3.35 mill/uL (4.20-5.40); White Blood Cell (WBC) Count 5.9 thou/uL (4.8-10.8)
[2019-11-20 06:22] LABS: Anion Gap 10 mmol/L (10-20); BUN (Urea Nitrogen) 13 mg/dL (9.8-20.1); Calc. Creatinine Clearance 64 mL/min (70-130); Calcium 7.7 mg/dL (7.8-10.44); Carbon Dioxide 23 mmol/L (23-31); Chloride 111 mmol/L (98-107); Estimated GFR-MDRD 61; Glucose 93 mg/dL (80-115); Potassium 3.7 mmol/L (3.5-5.1); Sodium 140 mmol/L (136-145)
[2019-11-20] MEDS ORDERED: Lisinopril/Hydrochlorothiazide 10 mg/12.5 mg Tablet PO SCH (09:00)
[2019-11-20] MEDS: Famotidine 20 MG TAB PO SCH (09:08)
[2019-11-20] MEDS: Anastrozole 1 MG TAB PO SCH (09:08)
[2019-11-20] MEDS: hydrOXYzine 25 MG TAB PO SCH ×2 (09:08→20:28)
[2019-11-20] MEDS: Enoxaparin Sodium 30 MG/0.3 ML SYRINGE SC SCH (09:09)
--- NOTE | 2019-11-20 16:14 | PDOC.HOSPP ---
- Subjective Encounter Date: 11/20/19 Encounter Time: 10:00 Subjective: Patient up in bed denies any complaints - Objective Vital Signs & Weight: Vital Signs (12 hours) Temp Pulse Resp BP BP Pulse Ox 11/20/19 15:53 98.5 F 86 20 120/72 96 11/20/19 11:13 97.8 F 85 20 112/70 94 L 11/20/19 09:09 93 106/66 11/20/19 08:00 99 11/20/19 07:17 98.3 F 93 20 106/66 11/20/19 06:13 98.7 F 93 18 97/52 L 99 Weight Weight 153 lb 3.54 oz I&O: 11/19/19 11/20/19 11/21/19 06:59 06:59 06:59 Intake Total 2730 Balance 2730 Result Diagrams: 11/20/19 05:45 11/20/19 05:45 Hospitalist ROS - Review of Systems Cardiovascular: denies: chest pain, palpitations, orthopnea, paroxysmal noc. dyspnea, edema, light headedness, other Gastrointestinal: denies: nausea, vomiting, abdominal pain, diarrhea, constipation, melena, hematochezia, other Genitourinary: denies: dysuria, frequency, incontinence, hematuria, retention, other - Medication Medications: Active Medications Generic Name Dose Route Start Last Admin Trade Name Freq PRN Reason Stop Dose Admin Acetaminophen 650 mg 11/18/19 23:06 11/19/19 17:56 Acetaminophen 325 Mg Tab PO 650 mg Q4H PRN Administration Headache/Fever/Mild Pain (1-3) Amitriptyline HCl 25 mg 11/19/19 21:00 11/19/19 19:52 Amitriptyline Hcl 25 Mg Tab PO 25 mg HS CHERYL Administration Anastrozole 1 mg 11/20/19 09:00 11/20/19 09:08 Anastrozole 1 Mg Tab PO 1 mg DAILY CHERYL Administration Enoxaparin Sodium 30 mg 11/19/19 09:00 11/20/19 09:09 Enoxaparin Sodium 30 Mg/0.3 Ml Syringe SC 30 mg 0900 CHERYL Administration Famotidine 20 mg 11/19/19 09:00 11/20/19 09:08 Famotidine 20 Mg Tab PO 20 mg DAILY CHERYL Administration Hydroxyzine HCl 25 mg 11/19/19 21:00 11/20/19 09:08 Hydroxyzine 25 Mg Tab PO 25 mg BID CHERYL Administration Cefazolin Sodium/Dextrose 2 gm 50 mls @ 100 mls/hr 11/19/19 22:00 11/20/19 14:44 / Device IVPB 50 mls Q8HR CHERYL Administration Nystatin 1 gm 11/19/19 12:30 11/20/19 14:45 Nystatin Powder 15 Gm Bot TOP 1 applic TID PRN Administration Topical Irritations Sodium Chloride 10 ml 11/18/19 23:06 11/19/19 17:53 Flush - Normal Saline 10 Ml Syringe IVF 10 ml Q12HR PRN Administration Saline Flush - Exam Neck: negative: supple, symmetric, no JVD, no thyromegaly, no lymphadenopathy, no carotid bruit, JVD Heart: negative: RRR, no murmur, no gallops, no rubs, normal peripheral pulses, irregular, diminshed peripheral pulses, murmur present, II/IV, III/IV Respiratory: negative: CTAB, no wheezes, no rales, no ronchi, normal chest ex pansion, no tachypnea, normal percussion, rales, rhonchi, tachypneic, wheezes Gastrointestinal: negative: soft, non-tender, non-distended, normal bowel sounds, no palpable masses, no hepatomegaly, no splenomegaly, no bruit, no guarding, no rigidity, tender to palpation, distended, diminished bowl sounds, voluntary guarding Hosp A/P (1) Cellulitis Code(s): L03.90 - CELLULITIS, UNSPECIFIED Status: Acute (2) HLD (hyperlipidemia) Code(s): E78.5 - HYPERLIPIDEMIA, UNSPECIFIED Status: Acute (3) HTN (hypertension) Code(s): I10 - ESSENTIAL (PRIMARY) HYPERTENSION Status: Acute (4) Hx of breast cancer Code(s): Z85.3 - PERSONAL HISTORY OF MALIGNANT NEOPLASM OF BREAST Status: Acute (5) Sepsis Code(s): A41.9 - SEPSIS, UNSPECIFIED ORGANISM Status: Acute - Plan Continue current antibiotics. Will consult infectious disease. She had a similar presentations a few months ago. We will continue home medications check labs in a.m. Sepsis resolved. 11/19 we will continue IV antibiotics for now. Patient states that last time she feels that she was discharged too soon and her mastitis relapsed. We will continue to monitor her and see if she does well possible discharge tomorrow. She will require transition to oral Keflex and then to penicillin for about a year.
[2019-11-20] MEDS: Acetaminophen 325 MG TAB PO PRN (20:28)
[2019-11-20] MEDS: Amitriptyline HCl 25 MG TAB PO SCH (20:28)
[2019-11-20] MEDS: Atorvastatin Calcium 40 MG TAB PO SCH (20:28)
[2019-11-20] MEDS ORDERED: Ondansetron ODT 4 MG TAB PO SCH (22:45)
[2019-11-21] MEDS: CEFAZOLIN 2 GM in Premix Bag 1 BAG IVPB SCH ×3 (05:38→20:44)
[2019-11-21 05:45] LABS: #Eosinphils 0.2 thou/uL (0.0-0.7); #Lymphocytes 1.3 thou/uL (1.20-3.40); #Monocytes 0.6 thou/uL (0.11-0.59); #Neutrophils 2.5 thou/uL (1.40-6.50); %Eosinophils 3.6 % (0.0-10.0); %Lymphocytes 27.8 % (21.0-51.0); %Monocytes 12.4 % (0.0-10.0); %Neutrophils 55.1 % (42.0-75.0); Hemoglobin 10.6 g/dL (12.0-16.0); Mean Corpuscular HGB CONC 32.5 g/dL (32.0-36.0); Mean Corpuscular Hemoglobin 29.3 pg (27.0-31.0); Mean Corpuscular Volume 90.2 fL (78.0-98.0); Mean Platelet Volume 8.5 fL (7.4-10.4); Platelet Count 208 thou/uL (130-400); Red Blood Cell (RBC) Count 3.62 mill/uL (4.20-5.40); White Blood Cell (WBC) Count 4.5 thou/uL (4.8-10.8)
[2019-11-21 06:19] LABS: Anion Gap 13 mmol/L (10-20); BUN (Urea Nitrogen) 11 mg/dL (9.8-20.1); Calc. Creatinine Clearance 67 mL/min (70-130); Calcium 8.4 mg/dL (7.8-10.44); Carbon Dioxide 22 mmol/L (23-31); Chloride 109 mmol/L (98-107); Estimated GFR-MDRD 64; Glucose 87 mg/dL (80-115); Potassium 3.9 mmol/L (3.5-5.1); Sodium 140 mmol/L (136-145)
[2019-11-21] MEDS: Anastrozole 1 MG TAB PO SCH (08:38)
[2019-11-21] MEDS: Lisinopril 2.5 MG TAB PO SCH (08:38)
[2019-11-21] MEDS: Enoxaparin Sodium 30 MG/0.3 ML SYRINGE SC SCH (08:39)
[2019-11-21] MEDS: hydrOXYzine 25 MG TAB PO SCH ×2 (08:39→20:44)
[2019-11-21] MEDS: Famotidine 20 MG TAB PO SCH (08:39)
--- NOTE | 2019-11-21 14:09 | PDOC.HOSPP ---
- Subjective Encounter Date: 11/21/19 Encounter Time: 10:00 Subjective: Patient up in bed states she feels better. However patient feels that last time she was discharged too early and wants to stay another day. - Objective Vital Signs & Weight: Vital Signs (12 hours) Temp Pulse Resp BP Pulse Ox 11/21/19 07:10 98.3 F 80 16 143/70 H 100 Weight Weight 153 lb 3.54 oz I&O: 11/20/19 11/21/19 11/22/19 06:59 06:59 06:59 Intake Total 2730 Balance 2730 Result Diagrams: 11/21/19 05:06 11/21/19 05:06 Hospitalist ROS - Review of Systems Cardiovascular: denies: chest pain, palpitations, orthopnea, paroxysmal noc. dyspnea, edema, light headedness, other Gastrointestinal: denies: nausea, vomiting, abdominal pain, diarrhea, constipation, melena, hematochezia, other Genitourinary: denies: dysuria, frequency, incontinence, hematuria, retention, other - Medication Medications: Active Medications Generic Name Dose Route Start Last Admin Trade Name Freq PRN Reason Stop Dose Admin Acetaminophen 650 mg 11/18/19 23:06 11/20/19 20:28 Acetaminophen 325 Mg Tab PO 650 mg Q4H PRN Administration Headache/Fever/Mild Pain (1-3) Amitriptyline HCl 25 mg 11/19/19 21:00 11/20/19 20:28 Amitriptyline Hcl 25 Mg Tab PO 25 mg HS CHERYL Administration Anastrozole 1 mg 11/20/19 09:00 11/21/19 08:38 Anastrozole 1 Mg Tab PO 1 mg DAILY CHERYL Administration Atorvastatin Calcium 40 mg 11/20/19 21:00 11/20/19 20:28 Atorvastatin Calcium 40 Mg Tab PO 40 mg HS CHERYL Administration Enoxaparin Sodium 30 mg 11/19/19 09:00 11/21/19 08:39 Enoxaparin Sodium 30 Mg/0.3 Ml Syringe SC 30 mg 0900 CHERYL Administration Famotidine 20 mg 11/19/19 09:00 11/21/19 08:39 Famotidine 20 Mg Tab PO 20 mg DAILY CHERYL Administration Hydroxyzine HCl 25 mg 11/19/19 21:00 11/21/19 08:39 Hydroxyzine 25 Mg Tab PO 25 mg BID CHERYL Administration Cefazolin Sodium/Dextrose 2 gm 50 mls @ 100 mls/hr 11/19/19 22:00 11/21/19 13:42 / Device IVPB 50 mls Q8HR CHERYL Administration Lisinopril 2.5 mg 11/21/19 09:00 11/21/19 08:38 Lisinopril 2.5 Mg Tab PO 2.5 mg DAILY CHERYL Administration Nystatin 1 gm 11/19/19 12:30 11/20/19 14:45 Nystatin Powder 15 Gm Bot TOP 1 applic TID PRN Administration Topical Irritations Sodium Chloride 10 ml 11/18/19 23:06 11/21/19 08:40 Flush - Normal Saline 10 Ml Syringe IVF 10 ml Q12HR PRN Administration Saline Flush - Exam Neck: negative: supple, symmetric, no JVD, no thyromegaly, no lymphadenopathy, no carotid bruit, JVD Heart: negative: RRR, no murmur, no gallops, no rubs, normal peripheral pulses, irregular, diminshed peripheral pulses, murmur present, II/IV, III/IV Respiratory: negative: CTAB, no wheezes, no rales, no ronchi, normal chest expansion, no tachypnea, normal percussion, rales, rhonchi, tachypneic, wheezes Gastrointestinal: negative: soft, non-tender, non-distended, normal bowel sounds, no palpable masses, no hepatomegaly, no splenomegaly, no bruit, no guarding, no rigidity, tender to palpation, distended, diminished bowl sounds, voluntary guarding Skin - other findings: Right breast erythema noted right abdomen erythema improved Hosp A/P (1) Cellulitis Code(s): L03.90 - CELLULITIS, UNSPECIFIED Status: Acute (2) HLD (hyperlipidemia) Code(s): E78.5 - HYPERLIPIDEMIA, UNSPECIFIED Status: Acute (3) HTN (hypertension) Code(s): I10 - ESSENTIAL (PRIMARY) HYPERTENSION Status: Acute (4) Hx of breast cancer Code(s): Z85.3 - PERSONAL HISTORY OF MALIGNANT NEOPLASM OF BREAST Status: Acute (5) Sepsis Code(s): A41.9 - SEPSIS, UNSPECIFIED ORGANISM Status: Acute - Plan Continue current antibiotics. Will consult infectious disease. She had a similar presentations a few months ago. We will continue home medications check labs in a.m. Sepsis resolved. 11/19 we will continue IV antibiotics for now. Patient states that last time she feels that she was discharged too soon and her mastitis relapsed. We will continue to monitor her and see if she does well possible discharge tomorrow. She will require transition to oral Keflex and then to penicillin for about a year. 11/20 we will continue IV antibiotics for now we will discharge patient in a.m.
[2019-11-21] MEDS: Atorvastatin Calcium 40 MG TAB PO SCH (20:44)
[2019-11-21] MEDS: Amitriptyline HCl 25 MG TAB PO SCH (20:44)
[2019-11-22] MEDS: CEFAZOLIN 2 GM in Premix Bag 1 BAG IVPB SCH (05:33)
[2019-11-22 07:05] VITALS: TEMP 98.4
[2019-11-22] MEDS: Enoxaparin Sodium 30 MG/0.3 ML SYRINGE SC SCH (08:02)
[2019-11-22] MEDS: Anastrozole 1 MG TAB PO SCH (08:02)
[2019-11-22] MEDS: Famotidine 20 MG TAB PO SCH (08:02)
[2019-11-22] MEDS: hydrOXYzine 25 MG TAB PO SCH (08:02)
[2019-11-22] MEDS: Lisinopril 2.5 MG TAB PO SCH (08:02)
[2019-11-22 08:06] VITALS: BP 112/69
--- NOTE | 2019-11-22 14:33 | DIS ---
DATE OF ADMISSION: 11/18/2019 DATE OF DISCHARGE: 11/22/2019 DISCHARGE DIAGNOSES: 1. Cellulitis of the right breast. 2. Hyperlipidemia. 3. Hypertension. 4. History of breast cancer. 5. Sepsis, resolved. HOSPITAL COURSE: The patient is a 69-year-old female, who initially presented to the hospital with swelling of her right breast area. She has had a similar infection in the past. The patient at this time was put on IV antibiotics. Infectious Disease was consulted. The patient was recommended to wear a compression bra or sports bra, which she does have at home. Also, the patient's antibiotics were changed to Ancef and on discharge, she is going to be on Keflex 500 mg every 6 hours for the next 10 days total of 14 days therapy. The patient will require lifelong suppression medication with penicillin VK 250 mg b.i.d. She will follow up with her primary care doctor for that. The patient has been advised to do so. She states that she will make an appointment with Dr. Mojica next week. HOME MEDICATIONS: Will be as of the followin. Keflex 500 mg every 6 hours for the next 10 days. 2. Florastor 250 mg daily. 3. Lisinopril 0.5 daily. 4. Amitriptyline 25 mg at bedtime. 5. Atorvastatin 40 mg daily. 6. Arimidex 1 tablet p.o. daily. PHYSICAL EXAMINATION: VITAL SIGNS: Temperature of 97.9, heart rate 73, respirations 18, 100% on room air, blood pressure 115/74. GENERAL: She is awake, alert, and oriented x3. Does not appear in distress. CARDIOVASCULAR: S1 and S2 present. No murmurs, rubs, or gallops. Again, she will be discharged home. Follow up with primary. Job ID: [id number]
== END 2019-11-22 13:36 | disposition home or self-care (01) | DRG 872 ==
LOC: ERS 19:34 → T4-A 21:00
PROVIDERS: ADMIT Internal Medicine; ATTEND Internal Medicine
DX: A41.9 Sepsis, unspecified organism (principal); N39.0 Urinary tract infection, site not specified; N61.0 Mastitis without abscess; E78.5 Hyperlipidemia, unspecified; I10 Essential (primary) hypertension; Z20.828 Contact with and (suspected) exposure to other viral communicable diseases; Z85.3 Personal history of malignant neoplasm of breast; Z92.21 Personal history of antineoplastic chemotherapy; Z92.3 Personal history of irradiation; Z79.899 Other long term (current) drug therapy; Z87.891 Personal history of nicotine dependence; Z79.811 Long term (current) use of aromatase inhibitors
CPT/HCPCS: 36415; 80048; 83605; 85025; 87086; 87635; 99285; J0690; J1650; U0003

== ENCOUNTER 2020-08-02 08:57 | Outpatient (CLI) | payer MEDICARE | END 2020-08-02 08:58 | disposition home or self-care (01) | LOC: BICMAMMO 08:57 | PROVIDERS: ATTEND Internal Medicine Medical Oncology | DX: Z08 Encounter for follow-up examination after completed treatment for malignant neoplasm (principal); M81.8 Other osteoporosis without current pathological fracture; T38.6X5A Adverse effect of antigonadotrophins, antiestrogens, antiandrogens, not elsewhere classified, initial encounter; Z85.3 Personal history of malignant neoplasm of breast | CPT/HCPCS: 77066; 77080; G0279 ==

== ENCOUNTER 2021-01-06 10:42 | Outpatient (CLI) | payer MEDICARE | END 2021-01-06 10:43 | disposition home or self-care (01) | LOC: PET 10:42 | PROVIDERS: ATTEND Surgery | DX: C50.911 Malignant neoplasm of unspecified site of right female breast (principal); C77.9 Secondary and unspecified malignant neoplasm of lymph node, unspecified | CPT/HCPCS: 78815; A9552 ==

== ENCOUNTER 2021-09-16 13:48 | Outpatient (CLI) | payer MEDICARE | END 2021-09-16 13:49 | disposition home or self-care (01) | LOC: BICMAMMO 13:48 | PROVIDERS: ATTEND Internal Medicine Medical Oncology | DX: Z08 Encounter for follow-up examination after completed treatment for malignant neoplasm (principal); M81.8 Other osteoporosis without current pathological fracture; Z85.3 Personal history of malignant neoplasm of breast | CPT/HCPCS: 77066; 77080; G0279 ==

== ENCOUNTER 2021-12-23 14:23 | Inpatient (IN) | payer MEDICARE ==
[2021-12-23 14:47] LABS: #Basophils 0.1 thou/uL (0.0-0.2); #Eosinphils 0.1 thou/uL (0.0-0.7); #Lymphocytes 1.3 thou/uL (1.20-3.40); #Monocytes 0.7 thou/uL (0.11-0.59); #Neutrophils 5.8 thou/uL (1.40-6.50); %Basophils 0.8 % (0.0-1.0); %Eosinophils 0.7 % (0.0-10.0); %Lymphocytes 16.4 % (21.0-51.0); %Monocytes 8.9 % (0.0-10.0); %Neutrophils 73.2 % (42.0-75.0); Hemoglobin 12.9 g/dL (12.0-16.0); Mean Corpuscular HGB CONC 33.7 g/dL (32.0-36.0); Mean Corpuscular Hemoglobin 30.9 pg (27.0-31.0); Mean Corpuscular Volume 91.7 fl (78.0-98.0); Platelet Count 256 10x3/uL (130-400); RBC Distribution Width 12.6 % (11.5-14.5); Red Blood Cell (RBC) Count 4.19 mill/uL (4.20-5.40)
[2021-12-23 15:08] LABS: ALT (SGPT) 18 U/L (8-55); AST (SGOT) 16 U/L (5-34); Albumin 4.1 g/dL (3.4-4.8); Alkaline Phosphatase 131 U/L (40-110); Anion Gap 17 mmol/L (10-20); BUN (Urea Nitrogen) 21 mg/dL (9.8-20.1); Bilirubin, Total 0.4 mg/dL (0.2-1.2); Calc. Creatinine Clearance 0 mL/min (70-130); Calcium 11.2 mg/dL (7.8-10.44); Carbon Dioxide 26 mmol/L (23-31); Chloride 102 mmol/L (98-107); Estimated GFR 39; Globulin 3.6 g/dL (2.4-3.5); Glucose 146 mg/dL (80-115); Potassium 4.2 mmol/L (3.5-5.1); Protein, Total 7.7 g/dL (5.8-8.1); Sodium 141 mmol/L (136-145)
[2021-12-23] MEDS ORDERED: Cefepime 2 GM VIAL ONE (17:13)
[2021-12-23] MEDS ORDERED: Acetaminophen 500 MG TAB ONE (17:13)
[2021-12-23] MEDS ORDERED: Vancomycin 1 GM/200 ML (FROZEN) BAG ONE (17:13)
[2021-12-23] MEDS ORDERED: Ondansetron PF 4 MG/2 ML Vial IVP PRN (18:35)
[2021-12-23] MEDS ORDERED: Enoxaparin Sodium 40 MG/0.4 ML SYRINGE SC SCH (18:45)
[2021-12-23] MEDS ORDERED: SODIUM CHLORIDE 0.9% IVPB SCH (20:00)
[2021-12-23] MEDS ORDERED: CEFAZOLIN IVPB SCH (20:00)
[2021-12-23 20:47] LABS: Lactic Acid 2.1 mmol/L (0.5-2.2)
[2021-12-23] MEDS ORDERED: Cefepime 1 GM in Sodium Chloride 0.9% 100 ML IVPB SCH (21:00)
[2021-12-23] MEDS ORDERED: VANCOMYCIN 1.75 GM/350 ML BAG IVPB SCH (21:00)
[2021-12-23 21:01] VITALS: BMI 36.6
[2021-12-23] MEDS: Sodium Chloride 0.9% 1,000 ML IV SCH (21:15)
[2021-12-23] MEDS ORDERED: Vancomycin HCl 500 MG in Sodium Chloride 0.9% 100 ML IVPB SCH (22:00)
[2021-12-24] MEDS: CEFAZOLIN IVPB SCH ×3 (00:05→15:44)
[2021-12-24] MEDS: SODIUM CHLORIDE 0.9% IVPB SCH ×3 (00:05→15:44)
[2021-12-24] MEDS: Sodium Chloride 0.9% 1,000 ML IV SCH ×2 (05:37→18:29)
[2021-12-24] MEDS: Famotidine/PF 20 mg/2ml Vial SLOW IVP SCH (08:12)
[2021-12-24] MEDS: Enoxaparin Sodium 30 MG/0.3 ML SYRINGE SC SCH (08:12)
[2021-12-24] MEDS ORDERED: FLU VACC QS2022-23(65YR UP)/PF 240 MCG/0.7 ML SYRINGE IM ONE (09:00)
[2021-12-24] MEDS ORDERED: Enoxaparin Sodium 40 MG/0.4 ML SYRINGE SC SCH (09:00)
[2021-12-24 09:38] LABS: Anion Gap 14 mmol/L (10-20); BUN (Urea Nitrogen) 14 mg/dL (9.8-20.1); CRP (Inflammatory) 2.83 mg/dL (= or < 0.5); Calc. Creatinine Clearance 60 mL/min (70-130); Calcium 8.9 mg/dL (7.8-10.44); Carbon Dioxide 20 mmol/L (23-31); Chloride 110 mmol/L (98-107); Estimated GFR 59; Glucose 103 mg/dL (80-115); Potassium 4.3 mmol/L (3.5-5.1); Sodium 140 mmol/L (136-145)
[2021-12-24 09:47] LABS: #Eosinphils 0.1 thou/uL (0.0-0.7); #Lymphocytes 0.9 thou/uL (1.20-3.40); #Monocytes 0.6 thou/uL (0.11-0.59); #Neutrophils 5.6 thou/uL (1.40-6.50); %Basophils 0.1 % (0.0-1.0); %Eosinophils 1.6 % (0.0-10.0); %Lymphocytes 12.2 % (21.0-51.0); %Monocytes 7.9 % (0.0-10.0); %Neutrophils 78.2 % (42.0-75.0); Hemoglobin 11.4 g/dL (12.0-16.0); Mean Corpuscular HGB CONC 29.8 g/dL (32.0-36.0); Mean Corpuscular Volume 97.4 fl (78.0-98.0); Mean Platelet Volume 8.4 fL (7.4-10.4); Platelet Count 220 10x3/uL (130-400); Platelet Morphology Comment Appears Adequate; RBC Distribution Width 12.9 % (11.5-14.5); RBC Morphology Normal; Red Blood Cell (RBC) Count 3.94 mill/uL (4.20-5.40); White Blood Cell (WBC) Count 7.1 10x3/uL (4.8-10.8)
[2021-12-24] MEDS ORDERED: Nitroglycerin 0.4 MG TAB (25 Tab Bottle) ONE (18:32)
[2021-12-24] MEDS: Acetaminophen 325 MG TAB PO PRN (18:33)
[2021-12-24] MEDS ORDERED: traMADol HCl 50 MG TAB PO PRN (20:44)
[2021-12-24] MEDS: Metoprolol Tartrate 25 MG TAB PO SCH (21:04)
[2021-12-24] MEDS: Amitriptyline HCl 25 MG TAB PO SCH (21:04)
[2021-12-25] MEDS: CEFAZOLIN IVPB SCH ×3 (00:25→16:59)
[2021-12-25] MEDS: SODIUM CHLORIDE 0.9% IVPB SCH ×3 (00:25→16:59)
[2021-12-25] MEDS: Sodium Chloride 0.9% 1,000 ML IV SCH ×2 (05:05→16:51)
[2021-12-25 06:37] LABS: #Eosinphils 0.1 thou/uL (0.0-0.7); #Lymphocytes 0.8 thou/uL (1.20-3.40); #Monocytes 0.7 thou/uL (0.11-0.59); #Neutrophils 5.1 thou/uL (1.40-6.50); %Basophils 0.4 % (0.0-1.0); %Eosinophils 1.5 % (0.0-10.0); %Lymphocytes 11.5 % (21.0-51.0); %Monocytes 10.2 % (0.0-10.0); %Neutrophils 76.4 % (42.0-75.0); Hemoglobin 10.8 g/dL (12.0-16.0); Mean Corpuscular HGB CONC 32.3 g/dL (32.0-36.0); Mean Corpuscular Hemoglobin 30.6 pg (27.0-31.0); Mean Corpuscular Volume 94.7 fl (78.0-98.0); Mean Platelet Volume 8.1 fL (7.4-10.4); Platelet Count 218 10x3/uL (130-400); RBC Distribution Width 12.7 % (11.5-14.5); Red Blood Cell (RBC) Count 3.54 mill/uL (4.20-5.40); White Blood Cell (WBC) Count 6.7 10x3/uL (4.8-10.8)
[2021-12-25 07:03] LABS: Anion Gap 14 mmol/L (10-20); BUN (Urea Nitrogen) 9 mg/dL (9.8-20.1); Calc. Creatinine Clearance 66 mL/min (70-130); Calcium 7.9 mg/dL (7.8-10.44); Carbon Dioxide 18 mmol/L (23-31); Chloride 113 mmol/L (98-107); Estimated GFR 67; Glucose 84 mg/dL (80-115); Potassium 3.8 mmol/L (3.5-5.1); Sodium 141 mmol/L (136-145)
[2021-12-25] MEDS: Famotidine/PF 20 mg/2ml Vial SLOW IVP SCH (08:55)
[2021-12-25] MEDS: Enoxaparin Sodium 30 MG/0.3 ML SYRINGE SC SCH (08:55)
[2021-12-25] MEDS: Aspirin 81 mg Enteric Coated Tablet PO SCH (08:55)
[2021-12-25] MEDS: Anastrozole 1 MG TAB PO SCH (08:55)
[2021-12-25] MEDS: Metoprolol Tartrate 25 MG TAB PO SCH ×2 (08:55→20:00)
[2021-12-25] MEDS: hydrOXYzine 25 MG TAB PO SCH (08:55)
[2021-12-25] MEDS ORDERED: Atorvastatin Calcium 40 MG TAB PO SCH (09:00)
[2021-12-25] MEDS: Lisinopril/Hydrochlorothiazide 10 mg/12.5 mg Tablet PO SCH (09:00)
[2021-12-25] MEDS: Nystatin Cream 15 GM TUBE TOP SCH ×2 (11:13→20:01)
[2021-12-25] MEDS: CEFAZOLIN 2 GM in Sodium Chloride 0.9% 100 ML IVPB SCH (16:51)
[2021-12-25] MEDS: Amitriptyline HCl 25 MG TAB PO SCH (20:00)
[2021-12-25] MEDS: Acetaminophen 325 MG TAB PO PRN (20:03)
[2021-12-26] MEDS: CEFAZOLIN 2 GM in Sodium Chloride 0.9% 100 ML IVPB SCH ×2 (00:39→08:08)
[2021-12-26] MEDS: Sodium Chloride 0.9% 1,000 ML IV SCH (00:40)
[2021-12-26] MEDS: Metoprolol Tartrate 25 MG TAB PO SCH (08:08)
[2021-12-26] MEDS: Enoxaparin Sodium 30 MG/0.3 ML SYRINGE SC SCH (08:08)
[2021-12-26] MEDS: Famotidine/PF 20 mg/2ml Vial SLOW IVP SCH (08:08)
[2021-12-26] MEDS: Aspirin 81 mg Enteric Coated Tablet PO SCH (08:09)
[2021-12-26] MEDS: hydrOXYzine 25 MG TAB PO SCH (08:09)
[2021-12-26] MEDS: Anastrozole 1 MG TAB PO SCH (08:09)
[2021-12-26] MEDS: Lisinopril/Hydrochlorothiazide 10 mg/12.5 mg Tablet PO SCH (08:09)
[2021-12-26] MEDS: Nystatin Cream 15 GM TUBE TOP SCH (08:14)
[2021-12-26 08:25] VITALS: BP 123/79; TEMP 98.3
[2021-12-26] MEDS ORDERED: Atorvastatin Calcium 40 MG TAB PO SCH (21:00)
[2021-12-27] MEDS ORDERED: Enoxaparin Sodium 40 MG/0.4 ML SYRINGE SC SCH (09:00)
[2021-12-27] MEDS ORDERED: Famotidine 20 MG TAB PO SCH (09:00)
== END 2021-12-26 12:35 | disposition home or self-care (01) | DRG 600 ==
LOC: ERS 14:23 → MSONC 18:12
PROVIDERS: ADMIT Internal Medicine; ATTEND Family Medicine
DX: N61.0 Mastitis without abscess (principal); N17.9 Acute kidney failure, unspecified; Z20.822 Contact with and (suspected) exposure to COVID-19; I10 Essential (primary) hypertension; E78.00 Pure hypercholesterolemia, unspecified; F32.A Depression, unspecified; M17.0 Bilateral primary osteoarthritis of knee; E78.1 Pure hyperglyceridemia; Z92.21 Personal history of antineoplastic chemotherapy; Z90.49 Acquired absence of other specified parts of digestive tract; Z85.3 Personal history of malignant neoplasm of breast; Z79.899 Other long term (current) drug therapy; Z92.3 Personal history of irradiation; Z87.891 Personal history of nicotine dependence; Z90.710 Acquired absence of both cervix and uterus
CPT/HCPCS: 36415; 71045; 80048; 80053; 83605; 85025; 85652; 86140; 87040; 96365; 96367; J0692; J1650; J3370; J3370-JW; J3490; J7050; S0028; U0003; U0005

== ENCOUNTER 2022-06-15 09:07 | Outpatient (CLI) | payer MEDICARE | END 2022-06-15 09:08 | disposition home or self-care (01) | LOC: CT 09:07 | PROVIDERS: ATTEND Internal Medicine Medical Oncology | DX: C50.411 Malignant neoplasm of upper-outer quadrant of right female breast (principal); M81.8 Other osteoporosis without current pathological fracture; R91.8 Other nonspecific abnormal finding of lung field | CPT/HCPCS: 71260; 82565 ==

== ENCOUNTER 2022-09-29 03:45 | Emergency (ER) | payer MEDICARE ==
[2022-09-29] MEDS ORDERED: Albuterol 2.5 MG/0.5 ML NEB ONE (05:06)
[2022-09-29 05:21] LABS: #Basophils 0.1 thou/uL (0.0-0.2); #Eosinphils 0.2 thou/uL (0.0-0.7); #Monocytes 0.8 thou/uL (0.11-0.59); #Neutrophils 9.9 thou/uL (1.40-6.50); %Basophils 0.7 % (0.0-1.0); %Eosinophils 1.3 % (0.0-10.0); %Lymphocytes 9.7 % (21.0-51.0); %Monocytes 6.7 % (0.0-10.0); %Neutrophils 81.3 % (42.0-75.0); Hemoglobin 12.4 g/dL (12.0-16.0); Mean Corpuscular Hemoglobin 28.8 pg (27.0-31.0); Mean Corpuscular Volume 92.8 fl (78.0-98.0); Mean Platelet Volume 10.3 fL (7.4-10.4); Platelet Count 296 10x3/uL (130-400); RBC Distribution Width 13.6 % (11.5-14.5); Red Blood Cell (RBC) Count 4.31 mill/uL (4.20-5.40); White Blood Cell (WBC) Count 12.1 10x3/uL (4.8-10.8)
[2022-09-29 05:45] LABS: ALT (SGPT) 26 U/L (8-55); AST (SGOT) 21 U/L (5-34); Albumin 4.1 g/dL (3.4-4.8); Alkaline Phosphatase 141 U/L (40-110); Anion Gap 18 mmol/L (10-20); BUN (Urea Nitrogen) 25 mg/dL (9.8-20.1); Bilirubin, Total 0.3 mg/dL (0.2-1.2); Calc. Creatinine Clearance 0 mL/min (70-130); Calcium 10.2 mg/dL (7.8-10.44); Carbon Dioxide 21 mmol/L (23-31); Chloride 103 mmol/L (98-107); Estimated GFR 40; Globulin 3.4 g/dL (2.4-3.5); Glucose 112 mg/dL (83-110); Potassium 3.6 mmol/L (3.5-5.1); Protein, Total 7.5 g/dL (5.8-8.1); Sodium 138 mmol/L (136-145)
[2022-09-29 05:48] LABS: Troponin I Less than 0.010 ng/mL (< 0.028)
[2022-09-29] MEDS ORDERED: Magnesium 2 GM/50 ML BAG (IN WATER) ONE (06:11)
[2022-09-29] MEDS ORDERED: Azithromycin 250 MG TAB ONE (06:11)
[2022-09-29] MEDS ORDERED: predniSONE 20 MG TAB ONE (06:11)
[2022-09-29] MEDS ORDERED: cefTRIAXone (ROCEPHIN) 1 GM VIAL ONE (06:11)
[2022-09-29 06:54] LABS: SARS-CoV-2 NAA Rapid Test Not Detected (NotDetected)
[2022-09-29] MEDS ORDERED: Iopamidol-370 76% 500 ML MDV (1 ML CHARGE) ONE (14:32)
== END 2022-09-29 08:02 | disposition home or self-care (01) ==
LOC: ERS 03:45
DX: J20.9 Acute bronchitis, unspecified (principal); R06.00 Dyspnea, unspecified; E78.2 Mixed hyperlipidemia; I10 Essential (primary) hypertension; F17.210 Nicotine dependence, cigarettes, uncomplicated; Z20.822 Contact with and (suspected) exposure to COVID-19
CPT/HCPCS: 0240U; 71045; 71275; 80053; 83880; 84484; 85025; 85379; 93005; 36415; 96365; 96375; J0696; J3475; J7512; J7611; Q9967

== ENCOUNTER 2022-10-12 09:23 | Outpatient (CLI) | payer MEDICARE | END 2022-10-12 09:24 | disposition home or self-care (01) | LOC: BICMAMMO 09:23 | PROVIDERS: ATTEND Internal Medicine Medical Oncology | DX: Z12.31 Encounter for screening mammogram for malignant neoplasm of breast (principal); C50.411 Malignant neoplasm of upper-outer quadrant of right female breast; M81.8 Other osteoporosis without current pathological fracture; Z85.3 Personal history of malignant neoplasm of breast; Z90.11 Acquired absence of right breast and nipple; Z90.12 Acquired absence of left breast and nipple; M85.89 Other specified disorders of bone density and structure, multiple sites | CPT/HCPCS: 77063; 77067; 77080 ==

== ENCOUNTER 2023-11-02 09:32 | Outpatient (CLI) | payer MEDICARE | END 2023-11-02 09:33 | disposition home or self-care (01) | LOC: BICMAMMO 09:32 | PROVIDERS: ATTEND Internal Medicine Hematology & Oncology | DX: Z12.31 Encounter for screening mammogram for malignant neoplasm of breast (principal); M81.8 Other osteoporosis without current pathological fracture; M85.88 Other specified disorders of bone density and structure, other site; R92.1 Mammographic calcification found on diagnostic imaging of breast; T38.6X5A Adverse effect of antigonadotrophins, antiestrogens, antiandrogens, not elsewhere classified, initial encounter; Z85.3 Personal history of malignant neoplasm of breast; Z91.89 Other specified personal risk factors, not elsewhere classified; Z98.890 Other specified postprocedural states | CPT/HCPCS: 77067; 77080 ==

== ENCOUNTER 2023-11-13 14:12 | Outpatient (CLI) | payer MEDICARE | END 2023-11-13 14:13 | disposition home or self-care (01) | LOC: BICMAMMO 14:12 | PROVIDERS: ATTEND Internal Medicine Hematology & Oncology | DX: R92.1 Mammographic calcification found on diagnostic imaging of breast (principal) | CPT/HCPCS: 77065; G0279 ==